=== PATIENT | female | born 1990 | race Caucasian/White ===

== ENCOUNTER 2016-09-23 17:09 | Inpatient (IN) | payer OTHER ==
[2016-09-23] VITALS (20 sets, daily range): BP systolic 84–117; BP diastolic 47–73
[~2016-09-23] VITALS: Ht 152.4 cm; Wt 54.0 kg
[2016-09-23] MEDS ORDERED: PRENTAB9 PO (18:33)
[2016-09-23] MEDS ORDERED: PENICILLIN G POTASSIUM IV 5 MU in D5W MINI-BAG PLUS 100 ML IV STA (20:28)
[2016-09-23] MEDS ORDERED: LACTATED RINGER'S 1000 ML IV STA (20:28)
[2016-09-23] MEDS ORDERED: OXYTOCIN 30 UNITS IN 0.9% NaCl 500ML IV BAG (J2590) As Ordered ONE (20:56)
[2016-09-23 21:14] LABS: MEAN CORPUSCULAR HEMOGLOBIN 33.9 pg (27.0-33.0); MEAN CORPUSCULAR HGB CONC 35.8 g/dl (32.0-36.5); MEAN CORPUSCULAR VOLUME 94.7 fl (80.0-96.0); RED CELL DISTRIBUTION WIDTH 13.7 % (11.5-14.5); WHITE BLOOD COUNT 12.2 K/mm3 (4.0-10.0)
[2016-09-23] MEDS ORDERED: FENTANYL 2MCG/ML ROPIVACAINE 0.2% IN 0.9% NACL 200ML IVBAG As Ordered ONE (21:27)
[2016-09-23] MEDS ORDERED: ePHEDrine SULFATE 25 MG/5 ML(5MG/ML) SYRINGE IV PRN (22:45)
[2016-09-23] MEDS ORDERED: EPIDURAL COMMENT XX SCH (22:45)
[2016-09-23] MEDS ORDERED: REFRIGERATOR IV KEYS XX PRN (22:45)
[2016-09-23] MEDS ORDERED: NALOXONE INJ 0.4 MG/1 ML VIAL (J2310) IV PRN (22:45)
[2016-09-23] MEDS ORDERED: EPIDURAL/PCA KEYS XX PRN (22:45)
[2016-09-23] MEDS ORDERED: FENTANYL/ROPIVACAINE/NACL BAG 200 ML EPIDURAL SCH (22:45)
[2016-09-23] MEDS ORDERED: LACTATED RINGER'S 1000 ML IV PRN (22:45)
[2016-09-23] MEDS ORDERED: ONDANSETRON 4MG/2ML VIAL (J2405) IV PRN (22:45)
[2016-09-23] MEDS ORDERED: diphenhydrAMINE INJ 50MG/ML VIAL (J1200) IV PRN (22:45)
[2016-09-24] VITALS (20 sets, daily range): BP systolic 94–153; BP diastolic 50–74
[2016-09-24] MEDS ORDERED: PENICILLIN G POTASSIUM IV 2.5 MU in D5W 100 ML IV SCH (01:00)
[2016-09-24] MEDS ORDERED: LR 1,000 ML IV SCH (02:00)
[2016-09-24] MEDS ORDERED: OXYTOCIN DRIP 30 UNITS in APPROPRIATE DILUENT 1 EA IV SCH ×2 (02:00→04:22)
[2016-09-24] MEDS ORDERED: DIBUCAINE 1% OINTMENT 30GM TOP PRN (04:30)
[2016-09-24] MEDS ORDERED: METHYLERGONOVINE MALEATE 0.2 MG/ML VIAL (J2210) IM PRN (04:30)
[2016-09-24] MEDS ORDERED: ONDANSETRON 4MG/2ML VIAL (J2405) IV PRN (04:30)
[2016-09-24] MEDS ORDERED: RHOGAM 300 MCG (1500 IU) INJ (J2790) IM SCH (04:30)
[2016-09-24] MEDS ORDERED: ACETAMINOPHEN 500 MG TAB PO PRN (04:30)
[2016-09-24] MEDS ORDERED: PROMETHAZINE 25 MG TAB PO PRN (04:30)
[2016-09-24] MEDS ORDERED: MEASLES,MUMPS,RUBELLA VACCINE INJ (MMR-II) (90707) SC SCH (04:30)
[2016-09-24] MEDS: DOCUSATE SODIUM 100 MG CAP PO SCH ×2 (07:31→20:18)
[2016-09-24] MEDS: PRENATAL VITAMINS CHEWABLE TABLET PO SCH (07:31)
[2016-09-24] MEDS: IBUPROFEN 800 MG TAB PO PRN ×2 (09:45→17:37)
[2016-09-25 06:30] VITALS: BP 114/63
[2016-09-25] MEDS: PRENATAL VITAMINS CHEWABLE TABLET PO SCH (07:55)
[2016-09-25] MEDS: IBUPROFEN 800 MG TAB PO PRN ×2 (08:18→20:40)
[2016-09-25] MEDS: DOCUSATE SODIUM 100 MG CAP PO SCH ×2 (09:00→20:40)
[2016-09-25 17:51] VITALS: BP 125/77
[2016-09-26 06:33] VITALS: BP 106/67
[2016-09-26] MEDS: DOCUSATE SODIUM 100 MG CAP PO SCH (07:38)
[2016-09-26] MEDS: PRENATAL VITAMINS CHEWABLE TABLET PO SCH (07:38)
[2016-09-26] MEDS ORDERED: IBUP-1114 PO (10:37)
[2016-09-26] MEDS ORDERED: DIBU1OIN TOP (10:37)
[2016-09-26] MEDS ORDERED: ACET50TA PO (10:37)
[2016-09-26] MEDS ORDERED: COLA100C5 PO (10:37)
--- NOTE | 2016-09-26 18:26 | DSES ---
DATE OF ADMISSION: 09/23/2016 DATE OF DISCHARGE: 09/26/2016 This lady is a 26-year-old 3, now para 1, admitted in active labor at 42 weeks of gestation. She had a spontaneous vaginal delivery with epidural of a male, 6 pounds 15 ounces, 3160 grams, scores of 8 and 9 at one and five minutes, respectively. She had small right labial laceration, which was oversewn in usual fashion. On her second day, we discussed phlebitis, cystitis, mastitis, metritis, cellulitis, diet, excise, pain management, perineal. breast, and wound care. She is normocephalic, atraumatic. Neck: Full range of motion. Pupils equal and reactive to light. Distal pulses are symmetric. No evidence of deep vein thrombosis (DVT), pulmonary embolism (PE), or superficial phlebitis. Lungs are clear bilaterally to bases. No wheezes or rhonchi. No costovertebral angle (CVA) tenderness. Uterus 2 below. Lochia is moderate. Perineum is healing. Four-quadrant bowel sounds are noted. No rashes, lesions, or pruritus. No arthralgia or myalgia. No complaints of cough, wheezes, shortness of breath, or dyspnea on exertion. No chest pain. No bleeding. Neurologic complete. No incontinence, urgency, or frequency. No nausea, vomiting, diarrhea, or constipation. No diabetic issues. Past medical, surgical, family history unremarkable. She does not smoke, drink, abuse drugs. She is . There is no domestic violence. In summary we have a term gestation, delivered a live- male infant for discharge. Followup in 6 weeks' time at the [facility]. Her medications have been sent to [facility], and she has been counseled to go and get them there. She has also been given a prescription for a breast pump. The patient was discharged improved.
== END 2016-09-26 12:15 | disposition home or self-care (01) | DRG 775 ==
LOC: M LDO 17:09 → M LDI 20:22 → M OBS 09-24 07:20
PROVIDERS: ADMIT Obstetrics & Gynecology; ATTEND Obstetrics & Gynecology
PROC: 10E0XZZ Delivery of Products of Conception, External Approach (ICD-10-PCS; principal; 2016-09-24)
PROC: 0HQ9XZZ Repair Perineum Skin, External Approach (ICD-10-PCS; 2016-09-24)
DX: O48.0 Post-term pregnancy (principal); O99.824 Streptococcus B carrier state complicating childbirth; Z3A.40 40 weeks gestation of pregnancy; O70.0 First degree perineal laceration during delivery; Z37.0 Single live birth